=== PATIENT | female | born 1975 | race Caucasian/White ===

== ENCOUNTER 2022-06-10 15:55 | Emergency (ER) | payer OTHER, SELFPAY ==
[2022-06-10] VITALS (9 sets, daily range): BP systolic 108–120; BP diastolic 82–93; PULSE 94–230; RESP 15–22; TEMP 36.6; O2SAT 98–100
--- NOTE | ~2022-06-10 | XR_ITS ---
EXAMINATION: XR chest 1V portable Exam Date/Time: 06/10/2022 16:40 CDT HISTORY: chest pain Comparison: None available. RESULT: Lines, tubes, and devices: None. Lungs and pleura: Clear. Cardiomediastinal silhouette: Unremarkable. Other: No acute osseous or upper abdominal finding. IMPRESSION: No acute cardiopulmonary process. Reviewed, dictated and finalized at location K.
--- NOTE | 2022-06-10 15:56 | ECG_ITS ---
Measurements Intervals [place] Rate: 217 P: [place]: 0 QRS: 42 QRSD: 96 T: 48 QT: 198 QTc: 376 Interpretive Statements SUPRAVENTRICULAR TACHYCARDIA NONSPECIFIC ST & T-WAVE ABNORMALITY CRITICAL TEST RESULT NO PREVIOUS ECG AVAILABLE FOR COMPARISON Electronically Signed On 06-11-2022 10:14:29 CDT by Oscar Coats M.D.
[2022-06-10] MEDS: SODIUM CHLORIDE 0.9% IV 1,000 ML 999 ML IV CONT (16:19)
--- NOTE | 2022-06-10 16:37 | ED.ARRPALP ---
HPI - Arrhythmia/Palpitations General Chief Complaint: Arrhythmia/Palpitations Stated Complaint: elevated heart rate Time Seen by Provider: 06/10/22 16:01 Source: patient and RN notes reviewed Mode of arrival: ambulatory Limitations: no limitations History of Present Illness HPI narrative: This is a 46 year old female who presents for evaluation of 46 year old female who presents of fast heart rate. She reports she had just got home for having wine with a friend. She developed heart racing and beating hard while she was washing the dishes. She report mild chest discomfort but she thinks it is anxiety. She denies nausea, vomiting, dizziness or shortness of breath. Denies leg swelling or calf pain. She reports having episode of heart racing a few years ago but it resolved without having to go to hospital. She was not assessed for this episode. Her gave her a dose of his atenolol prior to arrival. Related Data Allergies Allergy/AdvReac Type Severity Reaction Status Date / Time No Known Allergies Allergy Verified 06/10/22 16:20 Review of Systems Review of Systems: All systems reviewed & are unremarkable except as noted in HPI and below Constitutional: Constitutional: Denies chills, Denies fatigue and Denies fever(s) Cardiovascular: Cardiovascular: Reports chest pain, Reports rapid heart rate, Denies radiating jaw, neck or arm pain and Denies slow heart rate Respiratory: Respiratory: Denies chest congestion, Denies cough and Denies dyspnea Gastrointestinal: Gastrointestinal: Denies abdominal pain, Denies nausea and Denies vomiting PMFSH Past Medical History Medical History (Updated 06/10/22 @ 22:55 by Brittanie Cochran MD) No active medical problems Surgical History Surgical History (Updated 06/10/22 @ 22:56 by Brittanie Cochran MD) No pertinent past surgical history Social History Social History (Updated 06/10/22 @ 22:56 by Brittanie Cochran MD) Smoking status: Former smoker Alcohol intake: current Exam Const: General: no acute distress Nutritional Appearance: well nourished Orientation/consciousness: patient oriented x3 Limitations: no limitations HENMT: Head: normal to inspection Eyes: EOM: EOMs intact bilaterally Chest: Chest palpation & inspection: normal inspection of the chest Resp: Effort & Inspection: normal respiratory effort Auscultation: clear to auscultation bilaterally Cardio: Rate: tachycardic Rhythm: abnormal rhythm regularly irregular Heart sounds: no murmurs GI: Auscultation: normal bowel sounds Skin: General skin exam: normal color Rashes: no rashes Wounds: no wounds Neuro: General: patient oriented x3, moves all extremities and CN's II-XI intact bilaterally Extrem: General: normal to inspection Psych: Mental Status: mental status grossly normal Affect: normal affect Attitude: cooperative Course Reevaluation(s) Reevaluation #1: Patient states she feels better. She was given adenosine 6 mg IV on arrival and rhythm converted to sinus. She has maintained. I Discussed discharge plan and treatment. Date: 06/10/22 Time: 17:51 Vital Signs Vital signs: Vital Signs Temperature 97.8 F 06/10/22 16:06 Pulse Rate 230 H 06/10/22 16:06 Respiratory Rate 16 06/10/22 16:06 Blood Pressure 120/93 H 06/10/22 16:06 Pulse Oximetry 98 06/10/22 16:06 Oxygen Delivery Room Air 06/10/22 16:06 Temperature 97.8 F 06/10/22 16:06 Pulse Rate 94 06/10/22 18:10 Respiratory Rate 20 06/10/22 18:10 Blood Pressure 108/82 06/10/22 18:10 Pulse Oximetry 98 06/10/22 18:10 Oxygen Delivery Room Air 06/10/22 16:06 MDM - Arrhythmia/Palpitations Lab Data Attestation: I reviewed the patient's lab results. Result diagrams: 06/10/22 16:32 06/10/22 16:32 Labs: Lab Results 06/10/22 06/10/22 06/10/22 Range/Units 16:32 16:32 16:32 WBC 12.2 H (4.5-10.0) K/mm3 RBC 4.14 L (4.2-5.4)
[2022-06-10 16:39] LABS: Basophils Absolute Auto 0.1 K/mm3 (0.0-0.1); Basophils Percent Auto 0.7 % (0.2-1.2); Eosinophils Absolute Auto 0.2 K/mm3 (0-0.3); Eosinophils Percent Auto 1.3 % (0-4.4); Hemoglobin 13.6 g/dL (12.0-15.0); Immature Granulocyte Absolute 0.03 K/mm3 (0.00-0.031); Immature Granulocyte Percent A 0.2 % (0-0.5); Lymphocytes Absolute Auto 4.34 K/mm3 (0.9-3.2); Lymphocytes Percent Auto 35.7 % (18.3-44.2); Mean Corpuscular Hemoglobin 32.9 pg (26-34); Mean Corpuscular Volume 96.6 fl (80-100); Mean Platelet Volume 9.8 fl (7.4-10.4); Monocytes Absolute Auto 1.3 K/mm3 (0.1-0.6); Monocytes Percent Auto 10.4 % (2.6-8.5); Neutrophils Absolute Auto 6.3 K/mm3 (1.3-6.7); Neutrophils Percent Auto 51.7 % (45.5-73.1); Platelet Count Result 348 k/mm3 (150-375); Red Blood Count 4.14 M/mm3 (4.2-5.4); Red Cell Distribution Width 13.9 % (11.5-14.5); White Blood Count 12.2 K/mm3 (4.5-10.0)
[2022-06-10 16:48] LABS: Alanine Aminotransferase 14 U/L (6-35); Alkaline Phosphatase 54 U/L (38-126); Anion Gap 17 mmol/L (8-16); Aspartate Amino Transferase 23 U/L (14-36); Bilirubin,Total 0.3 mg/dL (0.2-1.3); Blood Urea Nitrogen 15 mg/dL (7-17); Calcium 9.2 mg/dL (8.4-10.2); Carbon Dioxide 19 mmol/L (22-30); Chloride 103 mmol/L (98-107); Estimated Glomerular Filt Rate 60; Glucose 107 mg/dL (65-110); Magnesium 1.9 mg/dL (1.6-2.3); Potassium 3.5 mmol/L (3.4-5.0); Sodium 139 mmol/L (137-145)
[2022-06-10 16:59] LABS: Troponin I < 0.012 ng/mL (0.000-0.034)
== END 2022-06-10 18:21 | disposition home or self-care (01) ==
PROVIDERS: Emergency Provider General Practice; PCP Family Medicine
DX: I47.1 Supraventricular tachycardia (principal); Z87.891 Personal history of nicotine dependence
CPT/HCPCS: 36415; 71045; 80053; 83735; 84443; 84484; 85025; 93005; 96360; 99284; J7030